=== PATIENT | female | born 1980 | race Caucasian/White ===

== ENCOUNTER → 2016-05-12 | Outpatient (CLI) | payer BC | END | disposition home or self-care (01) | LOC: C.LABSPEC 11:35 | PROVIDERS: ATTEND Physician Assistant | DX: N89.8 Other specified noninflammatory disorders of vagina (principal) ==

== ENCOUNTER → 2016-06-09 | Outpatient (CLI) | payer BC | END | disposition home or self-care (01) | LOC: C.PAPS 14:15 | PROVIDERS: ATTEND Physician Assistant | DX: Z01.419 Encounter for gynecological examination (general) (routine) without abnormal findings (principal) ==

== ENCOUNTER → 2016-11-27 | Outpatient (CLI) | payer BC ==
--- NOTE | 2016-11-27 09:20 | DIAGNOSTIC IMAGING REPORT ---
R HAND MIN 3 VIEWS ROUTINE CLINICAL HISTORY: Right hand pain status post trauma COMPARISON: None. DISCUSSION: No fractures or dislocations are visualized. IMPRESSION: No fractures identified. Electronically signed by: Florin Webster M.D. 11/27/2016 9:19 AM Dictated Date/Time: 11/27/2016 9:18 AM
== END | disposition home or self-care (01) ==
LOC: C.RAD1850 09:05
PROVIDERS: ATTEND Family Medicine
DX: S69.91XA Unspecified injury of right wrist, hand and finger(s), initial encounter (principal); X58.XXXA Exposure to other specified factors, initial encounter

== ENCOUNTER 2017-05-06 22:08 | Emergency (ER) | payer BC, OTHER ==
[~2017-05-06] VITALS: Ht 175.3 cm; Wt 82.3 kg
[2017-05-06 22:10] VITALS: TEMP 36.8; Ht 175.3 cm; Wt 82.3 kg
[2017-05-06] MEDS ORDERED: HYDROmorphone INJ 1 MG/ML SYR ONE ×2 (22:13→22:32)
[2017-05-06] MEDS ORDERED: ONDANSETRON INJ 2 MG/ML 2 ML VIAL ONE (22:15)
[2017-05-06] MEDS ORDERED: HYDROmorphone INJ 2 MG/ML SYR/VIAL IV STA (22:17)
[2017-05-06] MEDS ORDERED: ONDANSETRON INJ 2 MG/ML 2 ML VIAL IV STA (22:17)
[2017-05-06] MEDS ORDERED: HYDROmorphone INJ 1 MG/ML SYR IV STA (22:39)
--- NOTE | 2017-05-06 22:53 | DIAGNOSTIC IMAGING REPORT ---
R KNEE 3 VIEWS HISTORY: 37 years-old Female post reduction, patella status post reduction of dislocated patella COMPARISON: None available TECHNIQUE: 3 views of the right knee FINDINGS: Vertically oriented linear lucency overlying the fibular head is thought to be secondary to overlying soft tissue. 6 mm bone fragment with corticated margins is noted adjacent to the medial patellar facet. There is mild to moderate soft tissue swelling about the knee, greatest medially. Moderate sized joint effusion. No definite acute fracture or dislocation. IMPRESSION: 1. No acute fracture or dislocation identified. 2. 6 mm corticated bone fragment adjacent to the medial patellar facet suggests remote fracture fragment. 3. Medial soft tissue swelling with moderate joint effusion. The above report was generated using voice recognition software. It may contain grammatical, syntax or spelling errors. Electronically signed by: Clark Alejandra M.D. 05/06/2017 10:52 PM Dictated Date/Time: 05/06/2017 10:49 PM
[2017-05-06 23:29] VITALS: BP 112/65; PULSE 71; O2SAT 97
--- NOTE | 2017-05-07 05:03 | EMERGENCY ROOM VISIT NOTE ---
History First contact with patient: 22:17 Chief Complaint: KNEEPAIN Stated Complaint: R KNEE PAIN History of Present Illness The patient is a 37 year old female who presents to the Emergency Room with complaints of severe right knee pain who thinks she dislocated her patella wall skating tonight. Patient was turning and felt a pop and then fell the ground. Patient has been unable to bear weight. Pain currently 10 out of 10. Movement makes it worse nothing makes it better. No prior fracture to this leg. She is dislocated this patella before. Patient denies hip pain, ankle pain, torre pain , numbness, tingling. No other injuries per patient. Review of Systems An 10 system review of systems was completed with positives and pertinent negatives listed in the HPI. Past Medical/Surgical History Knee problems Social History Smoking Status: Never Smoker Alcohol Use: occasionally Drug Use: none Marital Status: Housing Status: lives with family Occupation Status: employed Physical Exam Vital Signs Date Time Temp Pulse Resp B/P (MAP) Pulse Ox O2 Delivery O2 Flow Rate FiO2 05/06/17 23:29 69 16 112/65 96 05/06/17 23:29 71 18 112/65 97 Room Air 05/06/17 22:10 36.8 83 20 115/70 100 Room Air Physical Exam VITALS: Vitals are noted on the nurse's note and reviewed by myself. Vital signs stable. GENERAL: Pleasant female who appears in pain, in no acute distress, nondiaphoretic, well-developed well-nourished. SKIN: Capillary reflex less than 2 seconds. HEENT: Normocephalic. PERRLA. EOMI. Nares patent. Mucous membranes moist. Neck is supple without nuchal rigidity. HEART: Regular rate and rhythm without murmurs gallops or rubs. LUNGS: Clear to auscultation bilaterally without wheezes, rales or rhonchi. No retractions or accessory muscle use. MUSCULOSKELETAL: No gross musculoskeletal defects. No pedal edema. No calf tenderness. The right knee is swollen. There is an obvious patellar dislocation laterally. The patient is tender diffusely. The patella subluxate. NEURO: Patient was alert and oriented to person place and time. Normal sensation to light and sharp touch. No focal neurological deficits. Medical Decision & Procedures Medications Administered Medications (Trade) Dose Ordered Sig/Ken Route Start Time Stop Time Status Last Admin Dose Admin Hydromorphone HCl (Dilaudid Inj) 1 mg STK-MED ONCE .ROUTE 05/06/17 22:13 05/06/17 22:14 DC 05/06/17 22:21 1 MG Ondansetron HCl (Zofran Inj) 4 mg STK-MED ONCE .ROUTE 05/06/17 22:15 05/06/17 22:16 DC 05/06/17 22:20 4 MG Hydromorphone HCl (Dilaudid Inj) 1 mg NOW STAT IV 05/06/17 22:39 05/06/17 22:40 DC 05/06/17 22:30 1 MG Procedure Right patella dislocation Reduction Indication: Patella dislocation Verbal consent obtained. Risks and benefits were explained with the usual customary discussion. A time out was taken. Neurovascular examination before the procedure revealed intact. The right knee patella dislocation was reduced by placing the patient supine and applying gentle downward inline traction on the leg with gentle midline pressure on the patella and manipulation was applied. This resulted in an easy reduction without complication. Neurovascular examination after the procedure revealed intact. The patient had significant pain relief and tolerated the procedure well. ED Course Prior records reviewed and summarized above. Triage Nursing notes reviewed. Additional history obtained from the family. The patient's history was concerning for swelling and pain in the leg. Differential diagnosis: Etiologies such as dislocation, sprain, strain, fracture, musculoskeletal, joint effusion, trauma, as well as others were entertained.. Physical examination: The physical examination revealed no signs of infection. Neurovascularly intact. ER treatment provided: Dilaudid, Zofran, crutches, knee immobilizer On reassessment the patient felt better. Diagnostics interpreted by me: Imaging studies: Knee x-ray shows proper realignment of the patella per my interpretation This appears to be consistent with patella dislocation that was reduced by myself. Patient was placed in a knee immobilizer and neurovascular status was rechecked after placement is intact. She is instructed in these crutches. She was advised to wear this when up and about and to follow-up with orthopedics in a few days or here in the ER sooner for severe pain, numbness, tingling, worsening signs or symptoms or as needed. By the evaluation outlined above emergent etiologies such as DVT, septic joint, infection, as well as others were deemed relatively unlikely. The pt informed about the findings as listed above. All questions were answered and pleased with the treatment. Return instructions were outlined and the patient was discharged in stable condition. Case reviewed with my attending Referral: The patient was referred to orthopedic for follow-up in 2 to 3 days for a recheck of the current condition. The chart was completed utilizing [employer] Speech voice recognition software. Grammatical errors, random word insertions, pronoun errors, and incomplete sentences are an occassional consequence of this system due to software limitations, ambient noise, and hardware issues. Any formal questions or concerns about the content, text, or information contained within the body of this dictation should be directly addressed to the physician grants and contracts assistant for clarification. Medical Decision As above Medication Reconcilliation Current Medication List: was personally reviewed by me Blood Pressure Screening Patient's blood pressure: Normal blood pressure Impression Primary Impression: Closed patellar dislocation Departure Information Dispostion Home / Self-Care Condition GOOD Referrals Isreal Hector D.O. 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 You were given medications in the ER that can affect your ability to safely function or operate a vehicle. Ibuprofen(Motrin, Advil) may be used for fever or pain. Use 600mg every six hours as needed. Take with food. Avoid using more than 2400mg in a 24 hour period. Do not use 2400mg per day for more than three consecutive days without physician direction. Prolonged inappropriate use can lead to stomach upset or ulcers. This medication can be taken if you need to drive, work, or perform activities which may be dangerous when taking narcotic pain medication. (AND/OR) Acetaminophen(Tylenol) may be used for fever or pain. Use 1000mg every six hours as needed. Avoid using more than 3000mg in a 24 hour period. This medication can be taken if you need to drive, work, or perform activities which may be dangerous when taking narcotic pain medication. Ice compresses for 20 minutes at a time four times daily for 2-3 days. Use the crutches as instructed. Rest and elevate your injury. Wear knee immobilizer when up and about. Do not have it so tight that you cannot feel your foot. Continue current medications. Return to the ER immediately for any numbness, tingling, severe pain, extreme swelling in the extremity or as needed. Call Orthopedics tomorrow to arrange follow up for your injury. Work Instructions Return To Work: 2 days Problem Qualifiers Primary Impression: Closed patellar dislocation Encounter type: initial encounter Laterality: right Qualified Codes: S83.004A - Unspecified dislocation of right patella, initial encounter
== END 2017-05-06 23:31 | disposition home or self-care (01) ==
LOC: EDBD 22:08 → C.EDA 22:10
DX: S83.004A Unspecified dislocation of right patella, initial encounter (principal); X50.9XXA Other and unspecified overexertion or strenuous movements or postures, initial encounter

== ENCOUNTER → 2017-09-22 | Outpatient (CLI) | payer OTHER | LOC: C.LAB1850 07:45 | PROVIDERS: ATTEND Obstetrics & Gynecology | DX: N97.9 Female infertility, unspecified (principal) ==

== ENCOUNTER 2021-03-05 23:38 | Inpatient (IN) ==
[2021-03-06] MEDS ORDERED: OXYTOCIN 30 UNITS/500 ML BAG IV PRN ×2 (00:01→18:33)
[2021-03-06] MEDS ORDERED: miSOPROStoL 50 MCG TAB PO ONE ×3 (00:01→07:24)
[2021-03-06 00:24] LABS: Hematocrit (blood only) 32.9 % (37-47); Hemoglobin 10.1 g/dL (12.0-16.0); Mean Corpuscular Hemoglobin 25.2 pg (25-34); Mean Corpuscular Hgb Conc 30.7 g/dL (32-36); Mean Platelet Volume 10.1 fL (7.4-10.4); Nucleated RBC # (auto) 0.03 K/uL (0-0); Nucleated RBC % (auto) 0.3 %; Platelet Count 225 K/uL (130-400); RDW Coefficient of Variation 15.1 % (11.5-14.5); RDW Standard Deviation 45.6 fL (36.4-46.3); Red Blood Count 4.01 M/uL (4.2-5.4); White Blood Count 8.87 K/uL (4.8-10.8)
--- NOTE | 2021-03-06 01:28 | History & Physical Report ---
Date of Service March 06, 2021 Assessment & Plan (1) 40 weeks gestation of : (2) Elderly primigravida: (3) PROM (premature rupture of membranes): Plan: admit, cx not particularly favorable, but carlos too frequently for cytotec. Patient desires minimal intervention if possible, so will allow expectant management. reevaluate at 4 am--6 hours from rupture. fetus category one. History of Present Illness Chief Complaint: rom Primary Care Provider: Clint Wang MD Patient is a 41yowf with iup at 40 1/7 weeks. Patient notes was talking with her , laughed and felt a gush about 10pm. Notes it was pink tinged. Had a few more small gushes since then. Notes some cramping. no vb. + fm. and Delivery Plans AMA>40@del *Anatomy Scan @ 20wks * Echo 22-24wks-- WNL *Growth scan @32wks--90% akh repeat growth at 36wks - 78% *Weekly NST's @36 wks *Twice weekly NST @38wks *Weekly SHEILA's @ 38 wks. *Deliver by 41 wksIOL 03/11/21 covid vaccine and booster done, [employer]In Social Has had flu vaccine. OB Labs: Blood Type O Positive 08/09/20 Antibody Screen NEGATIVE 08/09/20 Hemoglobin 10.9 g/dL (12.0-16.0) L 12/13/20 Hematocrit 33.5 % (37-47) L 12/13/20 Mean Corpuscular Volume 87.8 fL (80-100) 08/09/20 Platelet Count 295 K/uL (130-400) 08/09/20 Rubella IgG Antibody Immune (Immune) 08/09/20 Rapid Plasma Reagin Nonreactive (Nonreactive) 08/09/20 Hepatitis B Surface Antigen Neg (Neg) 08/09/20 HIV (1&2) Ab and P24 Ag, 4th Gener Neg (Neg) 08/09/20 Glucose 1 Hour 50 gm Load 154 mg/dl (70-130) H 12/13/20 Maternal Serum Alpha Fetoprotein 41.2 ng/mL 09/20/20 OB Optional Labs: Chlamydia trachomatis RNA NOT DETECTED (NOT DETECTED) 08/09/20 Neisseria gonorrhoeae RNA NOT DETECTED (NOT DETECTED) 08/09/20 Thyroid Stimulating Hormone (TSH) 1.440 uIu/ml (0.300-4.500) 01/24/19 Alpha Fetoprotein Triple Screen SEE NOTE 09/20/20 Labs Reviewed: low risk panorama--akh afp neg--akh gbs neg Allergies Allergy/AdvReac Type Severity Reaction Status Date / Time Latex, Natural Rubber Allergy Rash Verified 03/06/21 00:28 clindamycin AdvReac Rash Verified 03/06/21 00:28 Echinacea AdvReac Anaphylaxis Verified 03/06/21 00:28 theophylline AdvReac Vomiting Verified 03/06/21 00:28 Home Medications Medication Instructions Recorded Confirmed Type albuterol sulfate 90 mcg/actuation 1 puffs INH Q6H PRN 01/29/19 03/06/21 History aerosol inhaler (ProAir HFA) multivitamin (Multiple Vitamins) 1 tab PO DAILY 01/29/19 03/06/21 History sertraline [Zoloft] 200 mg PO DAILY 01/29/19 03/06/21 History Patient History Medical History Female infertility History of chicken pox History of ovarian cyst Surgical History S/P tooth extraction Family History Father Kidney stones Type B viral hepatitis Mother Type B viral hepatitis Family/Other Tuberculosis maternal great grandmother Grandmother (Maternal) Lung cancer Grandmother (Paternal) Diabetes Denies family history of Ovarian cancer Prostate cancer Breast cancer Colorectal cancer Social History Smoking Status: Never smoker Second Hand Exposure: No; Do You Dip or Chew Tobacco: No; Hx Alcohol Use: No Hx Substance Use: No Preferred Language: [place] Communication Ability: Effective Cereal Chemist Required: No Beliefs That Will Affect Care: None marital status: marital status details: Harvey Mackenzie (40) [phone] Current Living Situation: Spouse Current Living Situation Comment: lives with spouse, 2 step children, dogs current occupational status: employed 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 Other Information That Helps Us Care for You: No Feels Safe at Home: Yes Safety Concerns: Feels Safe At This Time Assistive Devices: Glasses Assistive Devices Comment: Pt wears glasses 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
--- NOTE | 2021-03-06 03:20 | Labor Progress Brief Note ---
Date of Service March 06, 2021 Subjective noting some cramping Assessment & Plan (1) PROM (premature rupture of membranes): Plan: what contractions she was having seem to have spaced. think she would benefit from cytotec for cervical ripening at this time. prom x 5 hrs. fetus category one. 50mcg po and reevaluate in 4 hours. she is agreeable. Physical Exam Physical Exam: cx--deferred toco--occasional efm--130s with mod variability, accels to 170s, no decels Results & Data ([facility]) Vital Signs (Past 12 Hours) Vital Signs Temp Pulse Resp BP 03/06/21 02:00 37.0 C 03/06/21 00:10 36.9 C 69 18 138/68 03/05/21 23:48 69 138/68 Coding Level of Care Code None Diagnoses PROM (premature rupture of membranes) O42.90
--- NOTE | 2021-03-06 07:26 | Labor Progress Brief Note ---
Date of Service March 06, 2021 Subjective Notes got really crampy after the cytotec but notes improved and got some rest. Assessment & Plan (1) PROM (premature rupture of membranes): Plan: cx still very unfavorable. toco allows another cytotec. prom x 9 hours. I think further cervical ripening will benefit patient. no fever or s/s of infection. Admission and Anticipated Discharge Date Admission Date: March 06, 2021 Physical Exam Physical Exam: cx--1+/50/-2/firm, more reachable toco--q5min efm--120s wtih mod variability, accels to 150s, no decels Results & Data ([facility]) Vital Signs (Past 12 Hours) Vital Signs Temp Pulse Resp BP 03/06/21 07:01 36.9 C 60 20 119/66 03/06/21 06:00 36.9 C 03/06/21 04:00 36.8 C 73 16 103/54 L 03/06/21 02:00 37.0 C 03/06/21 00:10 36.9 C 69 18 138/68 03/05/21 23:48 69 138/68 Coding Level of Care Code None Diagnoses PROM (premature rupture of membranes) O42.90
[2021-03-06] MEDS ORDERED: miSOPROStoL 25 MCG TAB SL STA (12:43)
--- NOTE | 2021-03-06 12:48 | Labor Progress Brief Note ---
Date of Service March 06, 2021 Subjective Patient has been ambulating. Feeling some increase in ctx. FHT Cat1 [place] occasional SVE 2-3/50/-2 Will plan for another dose of cytotec, will give sublingual. We reviewed her plan. Patient agreeable with plan. Assessment & Plan Admission and Anticipated Discharge Date Admission Date: March 06, 2021 Results & Data ([facility]) Vital Signs (Past 12 Hours) Vital Signs Temp Pulse Resp BP 03/06/21 09:01 36.7 C 03/06/21 07:01 36.9 C 60 20 119/66 03/06/21 06:00 36.9 C 03/06/21 04:00 36.8 C 73 16 103/54 L 03/06/21 02:00 37.0 C Coding Level of Care Code None
[2021-03-06] MEDS: LACTATED RINGER'S 1,000 ML IV PRN (17:55)
--- NOTE | 2021-03-06 18:06 | Labor Progress Brief Note ---
Date of Service March 06, 2021 Subjective Doing well. SVE /80/-1 bulging fore-bag, AROM for clear fluid. Will plan to start pitocin. T Cat 1 [place] Q 5 Assessment & Plan Admission and Anticipated Discharge Date Admission Date: March 06, 2021 Results & Data ([facility]) Vital Signs (Past 12 Hours) Vital Signs Temp Pulse Resp BP 03/06/21 17:19 36.9 C 03/06/21 15:41 58 L 121/70 03/06/21 14:25 36.8 C 03/06/21 11:50 36.9 C 03/06/21 09:01 36.7 C 03/06/21 07:01 36.9 C 60 20 119/66 Coding Level of Care Code None
--- NOTE | 2021-03-07 01:19 | Labor Progress Brief Note ---
Date of Service March 07, 2021 Subjective Patient does not desire pain control at this time. FHT Cat 1 [employer] rare SVE same as last check per RN. L&D unit was unable to begin pitocin due to staffing levels. At this point, we are able to begin pitocin safely. Discussed with patient and she is agreeable. Assessment & Plan Admission and Anticipated Discharge Date Admission Date: March 06, 2021 Results & Data ([facility]) Vital Signs (Past 12 Hours) Vital Signs Temp Pulse Resp BP 03/07/21 00:58 60 126/67 03/07/21 00:47 72 121/69 03/06/21 23:19 36.9 C 62 124/65 03/06/21 20:04 63 125/58 L 03/06/21 20:00 36.7 C 18 03/06/21 18:59 37.0 C 03/06/21 17:19 36.9 C 03/06/21 15:41 58 L 121/70 03/06/21 14:25 36.8 C Coding Level of Care Code None
[2021-03-07] MEDS: LACTATED RINGER'S 1,000 ML IV PRN ×3 (01:32→10:37)
[2021-03-07] MEDS ORDERED: ePHEDrine sulfate 50 MG/ML AMP ONE (03:03)
[2021-03-07] MEDS ORDERED: fentaNYL 2MCG/ML ROPIVACAINE 1.25MG/ML 100 ML BAG EPI ONE (03:03)
[2021-03-07] MEDS ORDERED: fentaNYL citrate 100 MCG/2 ML VIAL ONE ×2 (03:03→08:55)
[2021-03-07] MEDS ORDERED: SODIUM CHLORIDE 0.9% INJ 10 ML VIAL ONE (03:03)
[2021-03-07] MEDS ORDERED: BUPIVACAINE 0.25% 30 ML VIAL ONE ×2 (03:03→08:55)
--- NOTE | 2021-03-07 03:28 | Anesthesiology Consultation ---
Date of Service March 07, 2021 Assessment & Plan (1) Encounter for pre-operative examination: Chart Review Chart Review: Patient NOT seen in Pre Admission Testing and Acceptable Risk for Labor Epidural Consults Requested none History Height/Weight Height: 5 ft 9 in Weight: 90.904 kg Allergies Allergy/AdvReac Type Severity Reaction Status Date / Time Latex, Natural Rubber Allergy Rash Verified 03/06/21 00:28 clindamycin AdvReac Rash Verified 03/06/21 00:28 Echinacea AdvReac Anaphylaxis Verified 03/06/21 00:28 theophylline AdvReac Vomiting Verified 03/06/21 00:28 Medications Home Medications Medication Instructions Recorded Confirmed Last Taken albuterol sulfate 90 mcg/actuation 1 puffs INH Q6H PRN 01/29/19 03/06/21 Unknown aerosol inhaler (ProAir HFA) multivitamin (Multiple Vitamins) 1 tab PO DAILY 01/29/19 03/06/21 03/05/21 08:00 sertraline 100 mg tablet (Zoloft) 200 mg PO DAILY 03/06/21 03/06/21 03/05/21 08:00 Active Medications Generic Name Dose Route Start Last Admin Trade Name Freq PRN Reason Stop Dose Admin Lactated Ringer's 1,000 mls @ 125 mls/hr 03/06/21 00:01 03/07/21 03:02 Lr IV 03/08/21 00:00 999 mls/hr .Q8H PRN Infusion L&D Protocol Protocol Oxytocin 30 units in 500 mls @ 5 mls/hr 03/06/21 18:33 03/07/21 03:02 Pitocin IV 03/08/21 18:32 0.3 units/hr .Q24H PRN 5 mls/hr Labor Induction/Augmentation Titration Protocol 0.3 UNITS/HR Past Medical History Medical History Female infertility History of chicken pox History of ovarian cyst Past Family History Family History Father Kidney stones Type B viral hepatitis Mother Type B viral hepatitis Family/Other Tuberculosis maternal great grandmother Grandmother (Maternal) Lung cancer Grandmother (Paternal) Diabetes Denies family history of Ovarian cancer Prostate cancer Breast cancer Colorectal cancer Past Surgical History Surgical History S/P tooth extraction Social History Smoking Status: Never smoker Do You Dip or Chew Tobacco: No Hx Alcohol Use: No Hx Substance Use: No substance use type: does not use Physical Exam Vital Signs Last Vital Signs Temp 36.9 C 03/07/21 00:58 Pulse 68 03/07/21 02:58 Resp 18 03/07/21 00:58 BP 124/66 03/07/21 02:58 Testing Laboratory Results 03/06/21 00:14
[2021-03-07] MEDS ORDERED: ePHEDrine sulfate 50 MG/ML AMP IV PRN (04:12)
[2021-03-07] MEDS ORDERED: NALOXONE HCL 0.4 MG/1 ML VIAL/CARP IV PRN (04:12)
[2021-03-07] MEDS ORDERED: NALBUPHINE HCL INJ 10 MG/ML AMP IV PRN (04:12)
[2021-03-07] MEDS ORDERED: diphenhydrAMINE 50 MG/ML VIAL IV PRN (04:12)
[2021-03-07] MEDS ORDERED: NALOXONE HCL 1 MG in SODIUM CHLORIDE 0.9% 1000ML 1,000 ML IV PRN (04:12)
[2021-03-07] MEDS ORDERED: ONDANSETRON INJ 2 MG/ML 2 ML VIAL IV PRN (04:12)
[2021-03-07] MEDS ORDERED: fentaNYL 2MCG/ML ROPIVACAINE 1.25MG/ML 100 ML BAG EPI PRN (04:12)
--- NOTE | 2021-03-07 07:38 | Labor Progress Brief Note ---
Date of Service March 07, 2021 Subjective Comfortable with epidural. FHT Cat 1 [place] Q 2 SVE 9/100/0 Continue labor, anticipate . Assessment & Plan Admission and Anticipated Discharge Date Admission Date: March 06, 2021 Results & Data ([facility]) Vital Signs (Past 12 Hours) Vital Signs Temp Pulse Resp BP Pulse Ox 03/07/21 07:33 77 100 03/07/21 07:31 78 134/63 03/07/21 07:28 77 99 03/07/21 07:23 81 100 03/07/21 07:18 88 99 03/07/21 07:15 86 130/61 03/07/21 07:13 85 100 03/07/21 07:08 92 H 99 03/07/21 07:03 117 H 98 03/07/21 07:00 37.2 C 93 H 20 133/77 03/07/21 06:58 93 H 99 03/07/21 06:56 88 94 03/07/21 06:53 71 98 03/07/21 06:48 71 98 03/07/21 06:45 69 124/66 03/07/21 06:43 67 98 03/07/21 06:38 63 97 03/07/21 06:33 66 98 03/07/21 06:30 66 20 133/68 03/07/21 06:28 66 97 03/07/21 06:23 71 99 03/07/21 06:18 77 99 03/07/21 06:15 81 135/96 92 03/07/21 06:13 76 97 03/07/21 06:08 68 98 03/07/21 06:03 68 98 03/07/21 06:01 67 128/69 03/07/21 05:58 66 97 03/07/21 05:53 65 98 03/07/21 05:48 66 96 03/07/21 05:45 68 109/63 03/07/21 05:43 71 97 03/07/21 05:38 69 96 03/07/21 05:33 62 98 03/07/21 05:30 36.9 C 66 20 124/70 03/07/21 05:28 84 96 03/07/21 05:23 67 96 03/07/21 05:18 70 97 03/07/21 05:15 65 118/66 03/07/21 05:13 68 97 03/07/21 05:10 74 92 03/07/21 05:08 63 94 03/07/21 05:03 63 94 03/07/21 05:00 62 115/55 L 03/07/21 04:58 65 94 03/07/21 04:53 62 96 03/07/21 04:48 62 97 03/07/21 04:43 62 97 03/07/21 04:41 60 118/58 L 03/07/21 04:38 61 97 03/07/21 04:35 60 124/65 03/07/21 04:33 60 97 03/07/21 04:30 60 126/58 L 03/07/21 04:28 60 98 03/07/21 04:25 70 124/55 L 03/07/21 04:23 70 99 03/07/21 04:20 65 128/59 L 03/07/21 04:18 75 127/62 97 03/07/21 04:16 63 113/58 L 03/07/21 04:14 67 120/59 L 03/07/21 04:13 64 99 03/07/21 04:12 69 126/68 03/07/21 04:10 78 124/59 L 03/07/21 04:08 75 123/63 99 03/07/21 04:06 76 126/61 03/07/21 04:04 73 130/66 03/07/21 04:03 80 99 03/07/21 04:02 73 130/68 03/07/21 04:00 82 129/68 03/07/21 03:58 74 131/72 99 03/07/21 03:56 88 133/72 03/07/21 03:54 73 127/72 03/07/21 03:53 78 100 03/07/21 03:48 81 100 03/07/21 03:43 76 100 03/07/21 03:38 78 100 03/07/21 03:33 81 100 03/07/21 03:00 36.5 C 20 03/07/21 02:58 68 124/66 03/07/21 01:56 66 129/75 03/07/21 00:58 36.9 C 60 18 126/67 03/07/21 00:47 72 121/69 03/06/21 23:19 36.9 C 62 124/65 03/06/21 20:04 63 125/58 L 03/06/21 20:00 36.7 C 18 Coding Level of Care Code None
[2021-03-07] MEDS ORDERED: ACETAMINOPHEN 500 MG TAB ONE (08:18)
[2021-03-07] MEDS ORDERED: ACETAMINOPHEN 500 MG TAB PO PRN (08:29)
[2021-03-07] MEDS ORDERED: MINERAL OIL 30 ML UDC ONE (15:06)
[2021-03-07] MEDS ORDERED: LIDOCAINE 1% LOCAL 20 ML VIAL ONE (15:53)
--- NOTE | 2021-03-07 16:29 | Delivery Summary ---
Vaginal Delivery Summary Date of Service March 07, 2021 Vaginal Delivery Summary and 3rd Degree LAC (partial 3rd) Patient is a 41-year-old G1, P0 white female who presented with spontaneous rupture membranes and an unfavorable cervix. She received several doses p.o. Cytotec. Pitocin augmentation was begun after an adequate contraction pattern had been established. She received effective epidural analgesia and progressed to complete dilation. She pushed effectively over intact perineum for delivery of a viable female in the occiput anterior presentation. The rest of the infant delivered easily and was placed on the mother's abdomen for further attention and drying. After 1 minute the cord was clamped and cut. The placenta was then expressed intact with a three-vessel cord. Partial third- degree perineal laceration was repaired with 2-0 chromic and 3-0 chromic in the usual fashion. Estimated blood loss was 300 cc. bleeding was controlled with dilute Pitocin and fundal massage. Mother and were doing well after delivery. [facility] [place] Delivery Charge Delivery Type Details: and 3rd Degree LAC (partial 3rd)
[2021-03-07] MEDS ORDERED: SUPERCREAM 0.870% 15 GM JAR EXT PRN (16:35)
[2021-03-07] MEDS ORDERED: HYDROCORTISONE ACETATE 25 MG SUPP PR PRN (16:35)
[2021-03-07] MEDS ORDERED: oxyCODONE/ACETAMINOPHEN 5mg/325mg TAB PO PRN (16:35)
[2021-03-07] MEDS ORDERED: DIPHTHERIA/TETANUS/PERTUSSIS 0.5 ML SYR/VIAL IM ONE (16:35)
[2021-03-07] MEDS ORDERED: bisacodyL 10 MG SUPP PR PRN (16:35)
[2021-03-07] MEDS ORDERED: OXYTOCIN 30 UNITS/500 ML BAG IV PRN (16:35)
[2021-03-07] MEDS ORDERED: ACETAMINOPHEN 325 MG TAB PO PRN (16:35)
[2021-03-07] MEDS ORDERED: BENZOCAINE 20% AER SPR 82.5 GM CAN EXT PRN (16:35)
[2021-03-07] MEDS: IBUPROFEN 600 MG TAB PO PRN ×2 (17:42→21:05)
--- NOTE | 2021-03-07 18:42 | Anesthesia Procedure Note ---
Date of Service March 07, 2021 Anesthesia Post Epidural Note Vital Signs Vital Signs: Temp Pulse Resp BP Pulse Ox 36.5 C 77 20 114/57 L 98 03/07/21 13:35 03/07/21 18:12 03/07/21 12:30 03/07/21 18:12 03/07/21 15:34 Pain Intensity Bilateral Abdomen: Pain Intensity: 4 Notes Mental Status: alert / awake / arousable and participated in evaluation Patient Amnestic to Procedure: Yes Nausea / Vomiting: adequately controlled Pain: adequately controlled Airway Patency, RR, SpO2: stable & adequate BP & HR: stable & adequate Hydration State: stable & adequate Anesthetic Complications: no major complications apparent and Pt Satisfied with anesthetic care
[2021-03-07] MEDS: DOCUSATE SODIUM 100 MG CAP PO SCH (21:05)
[2021-03-08] MEDS: IBUPROFEN 600 MG TAB PO PRN ×4 (01:37→20:44)
--- NOTE | 2021-03-08 06:10 | Obstetrical Progress Note ---
Date of Service <Toni Pleitez DO - Last Filed: 03/08/21 08:03> March 08, 2021 Assessment & Plan <Toni Pleitez DO - Last Filed: 03/08/21 08:03> (1) Encounter for care and examination after delivery: 41 yo post day 1 from vaginal delivery, doing well. -Continue routine post care. -vital signs reviewed and WNL. (Tmax 37.9) -Blood type O+, GBS negative, Rubella Immune -Encourage ambulation, monitor and control pain with Motrin, tylenol PRN, resume regular diet, monitor lochia. -encourage breast feeding. Breast pump prescription sent to pharmacy. -hemoglobin 7.8. <Tequila Coe MD, FACOG - Last Filed: 03/08/21 10:01> (1) Encounter for care and examination after delivery: Subjective <Toni Pleitez DO - Last Filed: 03/08/21 08:03> Ambulation: ambulating normally Voiding: no voiding problems Passing Gas:: Yes Diet Tolerance:: regular diet Lochia:: Small Feeding Type:: breast feeding Current Pain Level(1-10): 0 Review of Systems Denies fever, chills, sweats Denies shortness of breath, difficulty breathing, chest pain, palpitations, chest pressure. Denies breast pain. Denies dysuria. Denies headache or changes in vision Physical Exam <Toni Pleitez DO - Last Filed: 03/08/21 08:03> General: Alert, oriented. No acute distress. Cardiac: Regular rate and rhythm, no murmurs/rubs/gallops. Respiratory: Clear to auscultation bilaterally a/p, no wheezes/rales/rhonchi. No increased work of breathing. Symmetrical chest rise. No respiratory distress. Abdomen: Soft, nontender, nondistended. Bowel sounds present. Uterus: Uterine fundus firm, palpable 2 cm below umbilicus. Lower Extremities: No lower extremity edema or swelling. No deep calf pain. Panda's negative bilaterally Results & Data ([facility]) <Toni Pleitez DO - Last Filed: 03/08/21 08:03> Vital Signs (Past 12 Hours) Vital Signs Temp Pulse Pulse Resp BP BP Pulse Ox 03/08/21 04:10 36.5 C 64 16 99/62 L 95 03/07/21 23:50 36.5 C 65 17 109/64 95 03/07/21 20:00 36.5 C 81 16 114/69 95 03/07/21 18:12 77 114/57 L <Tequila Coe MD, FACOG - Last Filed: 03/08/21 10:01> Co-Signing Physician Notes Resident Physician Supervision Note: I was present with Dr. Pleitez during the history and exam. I discussed the case with the resident and agree with the findings and plan as documented in the note. Any exceptions or clarifications are listed here: [None] Documented By: Tequila Coe MD, FACOG Resident Activity Tracking <Toni Pleitez DO - Last Filed: 03/08/21 08:03> Resident Involvement: Resident Care Provided Care Provided: OB Delivery
[2021-03-08 07:11] LABS: Hematocrit (blood only) 25.5 % (37-47); Hemoglobin 7.8 g/dL (12.0-16.0); Mean Corpuscular Hemoglobin 25.1 pg (25-34); Mean Corpuscular Hgb Conc 30.6 g/dL (32-36); Mean Platelet Volume 10.6 fL (7.4-10.4); Platelet Count 185 K/uL (130-400); RDW Coefficient of Variation 15.4 % (11.5-14.5); RDW Standard Deviation 45.7 fL (36.4-46.3); Red Blood Count 3.11 M/uL (4.2-5.4); White Blood Count 21.76 K/uL (4.8-10.8)
[2021-03-08] MEDS: PRENATAL VITAMIN 1 TAB PO SCH (07:56)
[2021-03-08] MEDS: DOCUSATE SODIUM 100 MG CAP PO SCH ×2 (07:56→20:43)
[2021-03-08] MEDS: SERTRALINE HCL 100 MG TABLET PO SCH (08:49)
[2021-03-08] MEDS ORDERED: FERROUS SULFATE 325 MG TAB PO ONE ×2 (10:28→14:11)
[2021-03-08] MEDS ORDERED: bisacodyL 5 MG TABEC PO SCH (20:00)
[2021-03-08 21:14] VITALS: O2SAT 97
[2021-03-09] MEDS: IBUPROFEN 600 MG TAB PO PRN ×2 (04:35→07:33)
--- NOTE | 2021-03-09 06:09 | Obstetrical Progress Note ---
Date of Service <Toni Pleitez DO - Last Filed: 03/09/21 07:26> March 09, 2021 Assessment & Plan <Toni Pleitez DO - Last Filed: 03/09/21 07:26> (1) Encounter for care and examination after delivery: 41 yo post day 2 from vaginal delivery, doing well. -Continue routine post care. -vital signs reviewed and WNL. (Tmax 37.9) -Blood type O+, GBS negative, Rubella Immune -Encourage ambulation, monitor and control pain with Motrin, tylenol PRN, resume regular diet, monitor lochia. -encourage breast feeding. Breast pump prescription sent to pharmacy. -hemoglobin 7.8 yesterday. Ferrous sulfate prescription sent to pharmacy. -D/C today if cleared by peds. Patient to follow up with Dr. Sanchez in clinic in 6 weeks. <Caryl Condon MD, FACOG - Last Filed: 03/09/21 07:43> (1) Encounter for care and examination after delivery: Subjective <Toni Pleitez DO - Last Filed: 03/09/21 07:26> Ambulation: ambulating normally Voiding: no voiding problems Passing Gas:: Yes Diet Tolerance:: regular diet Lochia:: Small Feeding Type:: breast feeding Current Pain Level(1-10): 0 Review of Systems Denies fever, chills, sweats Denies shortness of breath, difficulty breathing, chest pain, palpitations, chest pressure. Denies breast pain. Denies dysuria. Denies headache or changes in vision Physical Exam <Toni Pleitez DO - Last Filed: 03/09/21 07:26> General: Alert, oriented. No acute distress. Cardiac: Regular rate and rhythm, no murmurs/rubs/gallops. Respiratory: Clear to auscultation bilaterally a/p, no wheezes/rales/rhonchi. No increased work of breathing. Symmetrical chest rise. No respiratory distress. Abdomen: Soft, nontender, nondistended. Bowel sounds present. Uterus: Uterine fundus firm, palpable 2 cm below umbilicus. Lower Extremities: No lower extremity edema or swelling. No deep calf pain. Panda's negative bilaterally Results & Data ([facility]) <Toni Pleitez DO - Last Filed: 03/09/21 07:26> Vital Signs (Past 12 Hours) Vital Signs Temp Pulse Resp BP Pulse Ox 03/08/21 23:27 36.8 C 56 L 18 113/71 97 <Caryl Condon MD, FACOG - Last Filed: 03/09/21 07:43> Co-Signing Physician Notes Resident Physician Supervision Note: I was present with [Name of resident] during the history and exam. I discussed the case with the resident and agree with the findings and plan as documented in the note. Any exceptions or clarifications are listed here: [None] Documented By: Caryl Condon MD, FACOG Resident Activity Tracking <Toni Pleitez DO - Last Filed: 03/09/21 07:26> Resident Involvement: Resident Care Provided Care Provided: OB Delivery
[2021-03-09 06:38] LABS: Hemoglobin 7.6 g/dL (12.0-16.0)
[2021-03-09] MEDS ORDERED: FERROUS SULFATE 325 MG TAB PO ONE (07:28)
[2021-03-09] MEDS: DOCUSATE SODIUM 100 MG CAP PO SCH (07:32)
[2021-03-09] MEDS: PRENATAL VITAMIN 1 TAB PO SCH (07:32)
[2021-03-09] MEDS: SERTRALINE HCL 100 MG TABLET PO SCH (07:33)
[2021-03-09 09:29] VITALS: BP 112/70; PULSE 58; TEMP 97.7
== END 2021-03-09 13:50 | disposition home or self-care (01) | DRG 768 ==
LOC: OPB 23:38 → 4S1 23:40 → 4S2 03-07 20:01
DX: Z3A.40 40 weeks gestation of pregnancy; O42.00 Premature rupture of membranes, onset of labor within 24 hours of rupture, unspecified weeks of gestation; Z37.0 Single live birth; Z88.1 Allergy status to other antibiotic agents; Z91.040 Latex allergy status; Z88.8 Allergy status to other drugs, medicaments and biological substances; O70.20 Third degree perineal laceration during delivery, unspecified

== ENCOUNTER 2021-03-15 17:25 | Observation (INO) ==
[2021-03-15] MEDS ORDERED: MAG SULFATE 4GM BOLUS FROM BAG IV ONE (18:04)
[2021-03-15] MEDS ORDERED: LABETALOL HCL IV 5 MG/ML 20ML IV STA (18:04)
[2021-03-15] MEDS ORDERED: hydrALAZINE HCL 20 MG/ML VIAL IV STA (18:18)
[2021-03-15 18:33] LABS: Hematocrit (blood only) 31.5 % (37-47); Hemoglobin 9.4 g/dL (12.0-16.0); Mean Corpuscular Hemoglobin 25.1 pg (25-34); Mean Platelet Volume 9.8 fL (7.4-10.4); Platelet Count 197 K/uL (130-400); RDW Coefficient of Variation 16.3 % (11.5-14.5); Red Blood Count 3.75 M/uL (4.2-5.4); White Blood Count 9.77 K/uL (4.8-10.8)
[2021-03-15 18:41] LABS: Mean Corpuscular Hgb Conc 29.8 g/dL (32-36)
[2021-03-15 18:52] LABS: ALC (manual) 1.71 K/uL (1.2-3.4); Basophils # (manual) 0.09 K/uL (0-0.2); Basophils % (manual) 0.9 %; Eosinophils # (manual) 0.25 K/uL (0-0.5); Eosinophils % (manual) 2.6 %; Lymphocytes # (manual) 1.71 K/uL (1.2-3.4); Lymphocytes % (manual) 17.5 %; Monocytes # (manual) 0.43 K/uL (0.11-0.59); Monocytes % (manual) 4.4 %; Myelocytes # (manual) 0.09 K/uL (0-0); Myelocytes % (manual) 0.9 %; Neutrophils % (manual) 73.7 %; Polychromasia 1+
[2021-03-15 18:53] LABS: INR 1.1 (0.9-1.1); Partial Thromboplastin Time 27.2 Seconds (21.0-31.0); Prothrombin Time 11.2 Seconds (9.0-12.0)
[2021-03-15] MEDS: MAGNESIUM SULFATE / WTR 40 GM/1,000 ML BAG IV SCH (18:56)
[2021-03-15 19:10] LABS: Alanine Aminotransferase 30 U/L (7-52); Albumin Globulin Ratio 1.3 (0.9-2); Albumin Level 3.2 gm/dl (3.4-5.0); Alkaline Phosphatase 137 U/L (34-104); Anion Gap 7 (3-11); Aspartate Aminotransferase 26 U/L (13-39); BUN Creatinine Ratio 22.2 (10-20); Bilirubin,Total 0.3 mg/dl (0.2-1.0); Blood Urea Nitrogen 16 mg/dl (6-23); Carbon Dioxide 24 mmol/L (21-32); Chloride 109 mmol/L (98-107); Est GFR (African American) 121.4 ml/min; Est GFR (Non-African American) 104.8 ml/min; Globulin 2.4 gm/dl (2.5-4.0); Glucose 77 mg/dl (70-99(Fasting)); Potassium 4.2 mmol/L (3.5-5.1); Sodium 140 mmol/L (136-145); Total Protein 5.6 gm/dl (6.0-8.3)
--- NOTE | 2021-03-15 19:10 | History & Physical Report ---
Date of Service March 15, 2021 Assessment & Plan (1) hypertension: Plan: Suspect this could be pp preeclampsia given her sx and her elevated bps. Still markedly high here on arrival and rec anti-hypertensive meds. At first ordered labetalol but pulse <60 and changed to hydralazine. Rec magnesium seizure prophylaxis and labs. Couple aware of plan of care and rationale. Needs to void regularly, and pt would like to try on bedpan but aware may need alexandre for this evaluation. Discussed sx on magnesium and renally excreted. Platelts back so far and normal but other labs pending. Discussed risks of worsening preclampsia/eclampsia if untreated and significance. Admission and Anticipated Discharge Date Admission Date: March 15, 2021 History of Present Illness Chief Complaint: headaches and elevated bp, 9d pp Primary Care Provider: Clint Wang MD 41yo now 9days who presented to office with above cc. Patient had PROM induction with on 03/07/20 at term. She was sent home on 03/09/20. Of note no hypertensive disorders of or immediate pp. Then on thursday at home saw some bright flashing lights, some swelling and called on thursday and was seen in office. She had used a home bp cuff on thursday and thought her bp was elevated. At that point BP normal and no other symptoms when seen in office and provider recommended recheck of bp on thursday in office. Presented for that visit today. Had on and off HAs "all day." She denies n/v/ruq pain. Has had some gum bleeding today as well. On evaluation in office bps elevated 160/94 and d/w office md and decided likely pp preeclampsi and brought to L&D as direct admission for observation. On arrival reports same sx. Has been nursing and that is going well. No requesting anything for juarez pain. Allergies Allergy/AdvReac Type Severity Reaction Status Date / Time Latex, Natural Rubber Allergy Rash Verified 03/15/21 16:00 clindamycin AdvReac Rash Verified 03/15/21 16:00 Echinacea AdvReac Anaphylaxis Verified 03/15/21 16:00 theophylline AdvReac Vomiting Verified 03/15/21 16:00 Home Medications Medication Instructions Recorded Confirmed Type albuterol sulfate 90 mcg/actuation 1 puffs INH Q6H PRN 01/29/19 03/15/21 History aerosol inhaler (ProAir HFA) multivitamin (Multiple Vitamins) 1 tab PO DAILY 01/29/19 03/15/21 History sertraline 100 mg tablet (Zoloft) 200 mg PO DAILY 03/06/21 03/15/21 History breast pump #1 ea 03/08/21 03/15/21 Rx ferrous sulfate 325 mg (65 mg 325 mg PO Q OTHER DAY 42 Days #21 03/08/21 03/15/21 Rx iron) tablet tab Patient History Medical History Female infertility History of chicken pox History of ovarian cyst Surgical History S/P tooth extraction Family History Father Kidney stones Type B viral hepatitis Mother Type B viral hepatitis Family/Other Tuberculosis maternal great grandmother Grandmother (Maternal) Lung cancer Grandmother (Paternal) Diabetes Denies family history of Ovarian cancer Prostate cancer Breast cancer Colorectal cancer Social History Smoking Status: Never smoker Second Hand Exposure: No; Hx Alcohol Use: No Hx Substance Use: No Preferred Language: Bahamian Communication Ability: Effective Risk Assessment Analyst Required: No Beliefs That Will Affect Care: None marital status: marital status details: Harvey Mackenzie (40) [phone] Current Living Situation: Spouse Current Living Situation Comment: lives with spouse, 2 step children, dogs current occupational status: employed 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 Feels Safe at Home: Yes Assistive Devices: None Review of Systems as per Subjective / HPI Physical Exam Constitutional: WD/WN, vitals as above Respiratory: normal respiratory effort, lungs clear to auscultation Cardiovascular: Rate/Rhythm: regular rate and regular rhythm Gastrointestinal (Abdomen): Inspection/Auscultation: abdomen normal to inspection Percussion/Palpation: abdomen soft; abdomen nontender and no gu arding Musculoskeletal: tr edema nontender calves Neurologic: Patellar dtrs +2-+3 no clonus Psychiatric: A+Ox3, euthymic affect Results & Data ([facility]) Vital Signs (Past 12 Hours) Vital Signs Temp Pulse Resp BP Pulse Ox 03/15/21 18:57 56 L 94 03/15/21 18:56 52 L 97 03/15/21 18:51 56 L 96 03/15/21 18:49 54 L 141/65 H 93 03/15/21 18:46 55 L 96 03/15/21 18:44 57 L 94 03/15/21 18:41 78 97 03/15/21 18:39 81 94 03/15/21 18:36 77 97 03/15/21 18:34 70 168/81 H 03/15/21 18:33 72 93 03/15/21 18:31 58 L 95 03/15/21 18:26 56 L 97 03/15/21 18:24 60 93 03/15/21 18:21 50 L 96 03/15/21 18:19 54 L 177/91 H 03/15/21 18:16 58 L 97 03/15/21 18:04 49 L 167/79 H 03/15/21 18:00 22 03/15/21 17:49 52 L 171/83 H 03/15/21 17:34 98.8 F 49 L 22 190/92 H Coding Level of Care Code 93310 Initial Inpt Care Lvl 3 Diagnoses hypertension O16.5
[2021-03-15] MEDS ORDERED: LIDOCAINE 2% JELLY 5 ML TUBE ONE (19:50)
[2021-03-15] MEDS ORDERED: ACETAMINOPHEN 325 MG TAB PO PRN (20:28)
[2021-03-15 21:08] LABS: Creatinine Urine Random 12.9 mg/dl; Total Protein Urine Random < 4.0 mg/dl (0-11.9)
[2021-03-15] MEDS ORDERED: NIFEdipine EXTENDED REL 30 MG TABCR PO STA (22:34)
--- NOTE | 2021-03-15 23:47 | Communication Note ---
Date of Service: March 15, 2021 Prior to going to covme room reviewed labs with patient and covid +. Tearful about covid dx and bps elevated. Had given one dose of iv hydralazine thus far. Let patient settle down emotionally and bps still elevated but <160/105 so opted to start po bp med. nifedipine xl 30mg dosed and will see how responds. At time of that decision approx 10pm, urine output was excellent and due to moving to [facility] room from L&D, mag level not yet drawn. Pt's juarez was better, not requesting pain meds. Of note, urine protein neg and again other labs normal. Will not plan other labs at this time. Addendum: just got message from nurse as I type this that pt feeling sob, labile pulse ox. has asthma and uses inhaler, will order. normal bp. will consider hospitalist consult
[2021-03-15] MEDS ORDERED: ALBUTEROL HFA 8 GM INHALER INH PRN (23:59)
--- NOTE | 2021-03-16 00:13 | Hospitalist Consultation ---
Date of Consultation March 16, 2021 Assessment & Plan (1) COVID: 41yo with a history of asthma and a recent s/p PROM induction (03/07/21) on PPD#10 who was sent to [facility] from OBGYN clinic due to elevated BP in clinic today in addition to symptoms of preeclampsia this week including vision changes, LE swelling, and on-and-off headaches. The hospitalist service was consulted after patient's covid test on admission today was positive and patient had some desaturations with exertion today. COVID-19, shortness of breath Symptoms began 03/10/21, tested positive on 03/15/21; patient is triple- vaccinated and has no known prior history of covid Unclear if SOB is due to covid alone or multifactorial (e.g. asthma, pulmonary edema from preeclampsia, PE, others) PE unlikely given patient is afebrile and mildly bradycardic at this time; will obtain d-dimer and consider CTA if markedly elevated CXR ordered and reviewed, revealed mild right hemidiaphragm elevation but no findings suggestive of pulmonary edema or PNA Will obtain continuous pulse oximetry; if patient has true episodes of hypoxia, will consider dexamethasone, remdesevir, etc Supplemental oxygen as-needed to maintain O2 sat>90% Lovenox 40mg sq bid ordered Continue albuterol q6h prn Elevated BP, concern for preeclampsia Avoid further doses of labetalol given patient's history of asthma Rest of management per OBGYN Asthma Continue albuterol as above Asthma added to patient's problem list FEN: NPO Code status: full code DVT ppx: lovenox 40mg sq bid Isolation: airborne Dispo: med/surg (2) Asthma: Supervising Physician Co-Signing Physician Notes Patient seen and examined, chart reviewed, case discussed with Dr. Monterroso and I agree with the assessment and plan as above. In brief, patient is a 41yo s/p post day #10 with positive Covid-19 test. Patient with mild dry cough 5 days ago which has since improved. She is being managed for pre- eclampsia under primary OB team with magnesium gtt, Nifedipine and Labetalol. Reported saturations of 90-95 at rest, drops into 80's with sleep. Patient with no complaints Exam is unremarkable. Lungs with diminished breath sounds in bilateral bases otherwise clear Saturation >96% during my encounter with proper waveform Labs and images reviewed Ddimer elevated >58415 CTA with no PE. No airspace opacities or PNA. Small pleural effusions and compressive atelectasis Assessment/plan - 41yo female PPD#10 admitted with post- pre-eclampsia presently on Mg gtt. Covid-19 POSITIVE. Patient is fully vaccinated + booster. Mild symptoms of cough 5 days ago, now improving Borderline saturations - low mostly noted with sleeping. Unclear how much Covid-19 is contributing to borderline saturations. Her CTA shows no airspace involvement or PNA. No PE is present. ?GERARDO in (hormones, weight gain, jaw laxity), ?mild volume overload in setting of recent delivery, and pre-eclampsia (effusions noted on CT) -Monitor saturations -Consider use of O2 while sleeping if sats decrease only with sleep -Consider dose of diuretic -Incentive spirometry -If saturations <94% on room air while awake or drop significantly with ambulation would initiate steroids/dexamethasone History of Present Illness Attending Physician: Sommer Crouch MD, FACOG History of Present Illness 41yo with recent s/p PROM induction (03/07/21, discharged 03/09/21) and a history of asthma who was referred to [facility] by outpatient OBGYN due to elevated BP in clinic today in addition to symptoms of preeclampsia this week including vision changes, LE swelling, and on-and-off headaches. The hospitalist service was consulted after patient's covid test on admission today was positive. Patient has been satting 90-95% at rest, with some desaturations to the 80s noted with exertion and sleep. Patient notes she developed mild SOB and a mild dry cough about five days ago. Patient has a history of asthma - has not needed to use her albuterol inhaler in years, but notes she went to her PCP three days ago to have this refilled. Since refilling her albuterol, she has been using it every 4-6 hours with a mild improvement in symptoms. Patient notes her SOB and cough have been gradually improving over the past few days. Patient has been triple-vaccinated for covid, and does not have a prior history of covid infection. Patient's last negative covid test was on 03/05 when she was admitted in labor. Patient is a never- smoker. In addition to mild SOB and cough, patient also endorses a mild headache at this time. Patient denies other symptoms including fever, chills, vision changes, chest pain, abdominal pain, nausea, vomiting, diarrhea, lightheadedness, dizziness, or other symptoms. Allergies Allergy/AdvReac Type Severity Reaction Status Date / Time Latex, Natural Rubber Allergy Rash Verified 03/16/21 00:13 clindamycin AdvReac Rash Verified 03/16/21 00:13 Echinacea AdvReac Anaphylaxis Verified 03/16/21 00:13 theophylline AdvReac Vomiting Verified 03/16/21 00:13 Home Medications Medication Instructions Recorded Confirmed Type albuterol sulfate 90 mcg/actuation 1 puffs INH Q6H PRN 01/29/19 03/16/21 History aerosol inhaler (ProAir HFA) multivitamin (Multiple Vitamins) 1 tab PO DAILY 01/29/19 03/16/21 History sertraline 100 mg tablet (Zoloft) 200 mg PO DAILY 03/06/21 03/16/21 History breast pump #1 ea 03/08/21 03/15/21 Rx ferrous sulfate 325 mg (65 mg 325 mg PO Q OTHER DAY 42 Days #21 03/08/21 03/16/21 Rx iron) tablet tab Patient History Medical History (Updated 03/16/21 @ 00:53 by Talat Monterroso MD) Anxiety Asthma Closed patellar dislocation Female infertility History of chicken pox History of ovarian cyst Surgical History S/P tooth extraction Family History Father Kidney stones Type B viral hepatitis Mother Type B viral hepatitis Family/Other Tuberculosis maternal great grandmother Grandmother (Maternal) Lung cancer Grandmother (Paternal) Diabetes Denies family history of Ovarian cancer Prostate cancer Breast cancer Colorectal cancer Social History Smoking Status: Never smoker Second Hand Exposure: No; Hx Alcohol Use: Yes Hx Substance Use: No Preferred Language: Bengali Communication Ability: Effective Application Dba Required: No Beliefs That Will Affect Care: None marital status: marital status details: Harvey Mackenzie (40) [phone] Current Living Situation: Spouse and Family Current Living Situation Comment: lives with spouse, 2 step children, dogs current occupational status: employed 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 Other Information That Helps Us Care for You: No Feels Safe at Home: Yes Safety Concerns: Feels Safe At This Time Assistive Devices: Glasses Review of Systems Review of Systems: See HPI Physical Exam Physical Exam: Constitutional: well-appearing, no acute distress, laying comfortably in bed HEENT: MMM CV: regular rhythm, no murmur appreciated, extremities well-perfused, trace LE edema Resp: mild rhonchi of lower lobes noted in posterior chamberlain bilaterally, lungs clear in all other chamberlain, no crackles or wheezes noted, WOB not increased GI: soft, nondistended, nontender, BS normoactive MSK: no gross deformities appreciated Skin: warm, dry, no rash appreciated Neuro: alert, oriented, no focal neurologic deficit appreciated Results & Data Results & Data ([facility]) Vital Signs (Past 12 Hours) Vital Signs Temp Pulse Resp BP Pulse Ox 03/15/21 23:09 55 L 16 130/77 95 03/15/21 22:30 66 16 151/85 H 96 03/15/21 21:30 36.9 C 66 18 151/84 H 95 03/15/21 21:16 66 97 03/15/21 21:11 57 L 96 03/15/21 21:06 65 96 03/15/21 21:04 58 L 152/74 H 03/15/21 21:01 61 96 03/15/21 20:56 69 96 03/15/21 20:53 62 94 03/15/21 20:51 59 L 96 03/15/21 20:49 60 148/70 H 03/15/21 20:46 76 96 03/15/21 20:41 72 93 03/15/21 20:39 75 94 03/15/21 20:36 68 96 03/15/21 20:34 69 157/75 H 03/15/21 20:31 71 96 03/15/21 20:26 67 94 03/15/21 20:25 59 L 94 03/15/21 20:21 60 96 03/15/21 20:19 59 L 162/77 H 03/15/21 20:16 58 L 97 03/15/21 20:11 63 97 03/15/21 20:06 58 L 98 03/15/21 20:04 55 L 162/74 H 03/15/21 20:01 59 L 97 03/15/21 19:59 83 94 03/15/21 19:56 58 L 97 03/15/21 19:51 65 97 03/15/21 19:49 81 167/79 H 03/15/21 19:47 97 H 93 03/15/21 19:46 85 97 03/15/21 19:41 100 H 96 03/15/21 19:39 91 H 92 03/15/21 19:36 64 100 03/15/21 19:34 58 L 136/66 03/15/21 19:31 67 96 03/15/21 19:26 65 98 03/15/21 19:21 92 H 96 03/15/21 19:20 76 93 03/15/21 19:16 64 97 03/15/21 19:14 56 L 94 03/15/21 19:11 53 L 96 03/15/21 19:07 57 L 94 03/15/21 19:06 57 L 96 03/15/21 19:04 51 L 144/67 H 03/15/21 19:01 57 L 96 03/15/21 18:57 56 L 94 03/15/21 18:56 52 L 97 03/15/21 18:51 56 L 96 03/15/21 18:49 54 L 141/65 H 93 03/15/21 18:46 55 L 96 03/15/21 18:44 57 L 94 03/15/21 18:41 78 97 03/15/21 18:39 81 94 03/15/21 18:36 77 97 03/15/21 18:34 70 168/81 H 03/15/21 18:33 72 93 03/15/21 18:31 58 L 95 03/15/21 18:26 56 L 97 03/15/21 18:24 60 93 03/15/21 18:21 50 L 96 03/15/21 18:19 54 L 177/91 H 03/15/21 18:16 58 L 97 03/15/21 18:04 49 L 167/79 H 03/15/21 18:00 22 03/15/21 17:49 52 L 171/83 H 03/15/21 17:34 37.1 C 49 L 22 190/92 H Laboratory Results Laboratory Results WBC 9.77 K/uL (4.8-10.8) 03/15/21 18: RBC 3.75 M/uL (4.2-5.4) L 03/15/21 18:23 Hgb 9.4 g/dL (12.0-16.0) L 03/15/21 18:23 Hct 31.5 % (37-47) L 03/15/21 18: MCV 84.0 fL (80-100) 03/15/21 18: MCH 25.1 pg (25-34) 03/15/21 18: MCHC 29.8 g/dL (32-36) L 03/15/21 18: RDW Std Deviation 49.0 fL (36.4-46.3) H 03/15/21 18: RDW Coeff of Vamsi 16.3 % (11.5-14.5) H 03/15/21 18: Plt Count 197 K/uL (130-400) 03/15/21 18: MPV 9.8 fL (7.4-10.4) 03/15/21 18:23 Neutrophils % (Manual) 73.7 % 03/15/21 18: Lymphocytes % (Manual) 17.5 % 03/15/21 18: Monocytes % (Manual) 4.4 % 03/15/21 18: Eosinophils % (Manual) 2.6 % 03/15/21 18: Basophils % (Manual) 0.9 % 03/15/21 18: Myelocytes % (Man) 0.9 % 03/15/21 18: Neutrophils # (Manual) 7.20 K/uL (1.4-6.5) H 03/15/21 18:23 Total Absolute Neuts 7.20 K/uL (1.4-6.5) H 03/15/21 18: Lymphocytes # (Manual) 1.71 K/uL (1.2-3.4) 03/15/21 18: Total Abs Lymphocytes 1.71 K/uL (1.2-3.4) 03/15/21 18:23 Monocytes # (Manual) 0.43 K/uL (0.11-0.59) 03/15/21 18:23 Eosinophils # (Manual) 0.25 K/uL (0-0.5) 03/15/21 18:23 Basophils # (Manual) 0.09 K/uL (0-0.2) 03/15/21 18:23 Myelocytes # (Manual) 0.09 K/uL (0-0) H 03/15/21 18:23 Polychromasia 1+ 03/15/21 18:23 PT 11.2 Seconds (9.0-12.0) 03/15/21 18:23 INR 1.1 (0.9-1.1) 03/15/21 18:23 APTT 27.2 Seconds (21.0-31.0) 03/15/21 18: PTT Ratio 1.0 03/15/21 18:23 D-Dimer > 36787 ug/L FEU (0-500) H* 03/16/21 01:16 Sodium 140 mmol/L (136-145) 03/15/21 18:23 Potassium 4.2 mmol/L (3.5-5.1) 03/15/21 18:23 Chloride 109 mmol/L (98-107) H 03/15/21 18:23 Carbon Dioxide 24 mmol/L (21-32) 03/15/21 18:23 Anion Gap 7 (3-11) 03/15/21 18:23 BUN 16 mg/dl (6-23) 03/15/21 18:23 Creatinine 0.72 mg/dl (0.6-1.2) 03/15/21 18:23 Est Cr Clr Drug Dosing Not Reportable 03/15/21 18:23 Est GFR ( Amer) 121.4 ml/min 03/15/21 18:23 Est GFR (Non-Af Amer) 104.8 ml/min 03/15/21 18:23 BUN/Creatinine Ratio 22.2 (10-20) H 03/15/21 18:23 Glucose 77 mg/dl (70-99(Fasting)) 03/15/21 18:23 Calcium 8.0 mg/dl (8.5-10.1) L 03/15/21 18:23 Magnesium (Sulf Ther) 4.9 mg/dL (4.0-8.0) 03/15/21 22:53 Total Bilirubin 0.3 mg/dl (0.2-1.0) 03/15/21 18:23 AST 26 U/L (13-39) 03/15/21 18:23 ALT 30 U/L (7-52) 03/15/21 18:23 Alkaline Phosphatase 137 U/L (34-104) H 03/15/21 18:23 Total Protein 5.6 gm/dl (6.0-8.3) L 03/15/21 18:23 Albumin 3.2 gm/dl (3.4-5.0) L 03/15/21 18:23 Globulin 2.4 gm/dl (2.5-4.0) L 03/15/21 18:23 Albumin/Globulin Ratio 1.3 (0.9-2) 03/15/21 18:23 Ur Random Creatinine 12.9 mg/dl 03/15/21 20:00 U Random Total Protein < 4.0 mg/dl (0-11.9) 03/15/21 20:00 Protein/Creatinin Ratio TNP 03/15/21 20:00 SARS-CoV-2, RNA, NAAT POSITIVE (NEGATIVE) A* 03/15/21 Unknown Resident Activity Tracking Resident Involvement: Resident Care Provided Care Provided: Adult Hospital Medicine
[2021-03-16] MEDS: IBUPROFEN 600 MG TAB PO PRN ×3 (00:43→19:52)
[2021-03-16] MEDS: ENOXAPARIN INJ 40 MG/0.4 ML SYR SQ SCH ×2 (01:54→12:37)
[2021-03-16 02:11] LABS: D Dimer > 35200 ug/L FEU (0-500)
[2021-03-16] MEDS ORDERED: OPTIRAY 320 125ml IV ONE (02:49)
--- NOTE | 2021-03-16 07:09 | Billing Data ---
Date of Service March 16, 2021 Coding Level of Care Code 90900 Inpt Consult Level 3
--- NOTE | 2021-03-16 07:23 | CT Scan Report ---
CT angio chest PE protocol CT DOSE: 317.04 mGy.cm HISTORY: 41 years-old Female with concern for PE. Acute shortness of breath with recent TECHNIQUE: Multiple CTA images of the chest were obtained after the intravenous administration of 110 ml Optiray. Coronal and sagittal MIPS were obtained from the axial data set and were submitted for review. All measurements were obtained according to NASCET criteria. A dose lowering technique was u tilized adhering to the principles of ALARA. COMPARISON: Chest radiograph of same day FINDINGS: CTA: There is adequate opacification of the pulmonary arteries to the level of the subsegmental branches w ithout convincing evidence of acute pulmonary embolism. thoracic aorta Heart size is normal. CT CHEST: No no thyroid nodule. No definite adenopathy. Small right greater left pleural effusions with mild de pendent bibasilar consolidation. No pneumothorax or overt pulmonary edema. Subpleural 4 mm solid nodu le of the right upper lobe, image 232 is likely benign. The central airways are patent. No acute process of the imaged upper abdomen. Unremarkable soft tissues. No acute fracture. IMPRESSION: 1. No pulmonary emboli. 2. Small right greater than left left layering pleural effusions with mild dependent bibasilar consol idation suggestive of compressive atelectasis. ACT 112: Negative or not required by law. The above report was generated using voice recognition software. It may contain grammatical, syntax o r spelling errors. Electronically signed by: Jose Alejandra M.D. 03/16/2021 7:21 AM
--- NOTE | 2021-03-16 07:32 | XRay Report ---
XR chest 1V portable CLINICAL HISTORY: covid, hypoxia COMPARISON STUDY: Chest radiograph July 09, 2015. FINDINGS: There is no pneumothorax. Small right pleural effusion is noted with mild right basilar opa city. Cardiac size is normal. There is no evidence for pulmonary edema. IMPRESSION: 1. Small right pleural effusion with associated atelectasis. 2. No pneumothorax. ACT 112: Negative or not required by law. Electronically signed by: Dani Nicole M.D. 03/16/2021 7:31 AM
--- NOTE | 2021-03-16 08:28 | Obstetrical Progress Note ---
Date of Service March 16, 2021 Assessment & Plan (1) hypertension: (2) Asthma: Plan: Bps are labile, I started po nifedipine xl last pm. Will see trend and may change dosing. urine output excellent, no concern for mag toxicity. labs on admission looked good as far as gest htn and therefore i did not repeat. mag level last pm normal as well. will d/w oncyun md and further labs for our diagnoses. she says feels better after her inhaler and does not seem to have abnl pulse ox when awake. can pursue possible sleep apnea as outpt. appreciate hospitalist input, if bps stable for us by 24hr pp magnesium, we will likely d/c home, barring any objections from their service. pt aware that plan is in flux given unknowns this am, ie. how her bps will do, what other sx she will develop. allow reg diet. Admission and Anticipated Discharge Date Admission Date: March 15, 2021 Subjective Pt doing well this am. Reports no sob or cp. No juarez or visual change. No persistent ruq pain. Was seen by hospitalist service by my request overnight. Ended up getting CXR and chest CT, reports reviewed with patient. I had ordered her albuterol inhaler as well and she notes her sob improved afterwards. Has known h/o asthma. Review of Systems Constitutional: as per Subjective / HPI Physical Exam Constitutional: WD/WN, vitals as above Respiratory: normal respiratory effort, lungs clear to auscultation Cardiovascular: Rate/Rhythm: regular rate and regular rhythm Gastrointestinal (Abdomen): soft nt Musculoskeletal: tr edema nontender calves Neurologic: Patellar dtrs +2-+3 no clonus Psychiatric: A+Ox3, euthymic affect Results & Data ([facility]) Vital Signs (Past 12 Hours) Vital Signs Temp Pulse Pulse Resp BP Pulse Ox 03/16/21 06:30 93 03/16/21 06:24 18 03/16/21 06:23 67 18 129/76 96 03/16/21 05:16 70 16 134/84 98 03/16/21 05:15 16 03/16/21 04:15 97.5 F L 61 16 149/81 H 97 03/16/21 02:58 18 03/16/21 02:55 61 18 152/88 H 97 03/16/21 02:01 61 16 150/83 H 92 03/16/21 02:00 16 03/16/21 01:49 61 20 96 03/16/21 01:30 20 03/16/21 01:27 97.9 F 76 18 150/84 H 96 03/16/21 00:30 18 03/16/21 00:10 54 L 18 155/84 H 96 03/15/21 23:30 16 03/15/21 23:09 55 L 16 130/77 95 03/15/21 22:30 66 16 151/85 H 96 03/15/21 21:30 98.4 F 66 16 151/84 H 95 03/15/21 21:16 66 97 03/15/21 21:11 57 L 96 03/15/21 21:06 65 96 03/15/21 21:04 58 L 152/74 H 03/15/21 21:01 61 96 03/15/21 20:56 69 96 03/15/21 20:53 62 94 03/15/21 20:51 59 L 96 03/15/21 20:49 60 148/70 H 03/15/21 20:46 76 96 03/15/21 20:41 72 93 03/15/21 20:39 75 94 03/15/21 20:36 68 96 03/15/21 20:34 69 157/75 H 03/15/21 20:31 71 96 03/15/21 20:26 67 94 03/15/21 20:25 59 L 94 PG Care Time/CCT Total # of Minutes Spent Total Time Spent with Patient: Total time spent is greater than 50% in coordination of care (as documented) at patient's floor/unit and/or counseling patient: Coding Level of Care Code 11431 Subseq Obs Care Lvl 2 Diagnoses hypertension O16.5 Asthma J45.909
[2021-03-16] MEDS: MAGNESIUM SULFATE / WTR 40 GM/1,000 ML BAG IV SCH (09:35)
--- NOTE | 2021-03-16 15:17 | Hospitalist Progress Note ---
Date of Service March 16, 2021 Assessment & Plan (1) COVID: Plan: 41yo with a history of asthma and a recent s/p PROM induction (03/07/21) on PPD#10 who was sent to [facility] from OBGYN clinic due to elevated BP in clinic today in addition to symptoms of preeclampsia this week including vision changes, LE swelling, and on-and-off headaches. The hospitalist service was consulted after patient's covid test on admission today was positive and patient had some desaturations with exertion today. Symptoms began 03/10/21, tested positive on 03/15/21; patient is triple- vaccinated and has no known prior history of covid Unclear if SOB is due to covid alone or multifactorial (e.g. asthma, pulmonary edema from preeclampsia, others) DDimer markedly elevated, CTA obtained which was negative for PE. CXR ordered and reviewed, revealed mild right hemidiaphragm elevation but no findings suggestive of pulmonary edema or PNA Will obtain continuous pulse oximetry; at this point, no hypoxia to necessitate Decadron or other medications to treat COVID Supplemental oxygen as-needed to maintain O2 sat>90%, has not required any O2 at this time Lovenox 40mg sq bid ordered, because of her high risk for PE given recent and now COVID would recommend daily Lovenox injections for ppx Unfortunately, a DOAC is not an option as they are not recommended for mothers (2) Asthma: Plan: Continue albuterol as above Asthma added to patient's problem list (3) Elevated BP without diagnosis of hypertension: Plan: Avoid further doses of labetalol given patient's history of asthma Rest of management per OBGYN Plan: At this point, I have no further recommendations for this patient other than as outlined above. If she should be discharged this evening, I would recommend daily Lovenox 40mg SC x 30 days. Admission and Anticipated Discharge Date Admission Date: March 15, 2021 Supervising Physician Co-Signing Physician Notes Chart reviewed, case discussed with Ashley Mckeon PA-C and I agree with the assessment and plan as above. Pt with afternoon desat, +decadron 6mg daily and overnight pulseox ordered. Subjective Patient seen on rounds this morning, she is doing well and has no complaints. There was question if her oxygen was lowering while she was sleeping, but no recorded drops this morning. Pt denies cp, dyspnea, cough, fever/chills. She denies n/v/d. She is currently on Lovenox injections and tolerating them. She is 10 days post . Hospitalized 03/15 d/t PP pre-eclampsia with incidental covid+ test which prompted medical consult. Pt is . Review of Systems Review of Systems: CONSTITUTIONAL: Denies weight loss/gain, fever and chills, fatigue, malaise, generalized weakness. HEENT: Denies changes in vision and hearing. RESPIRATORY: Denies SOB, cough, wheezing. CV: Denies palpitations, CP, lower extremity edema, orthopnea, PND. GI: Denies abdominal pain, nausea, vomiting and diarrhea. : Denies dysuria and urinary frequency, urgency, hesitancy. MUSCULOSKELETAL: Denies myalgia and joint pain. SKIN: Denies rash and pruritus. NEUROLOGICAL: Denies headache, syncope, focal weakness, numbness, tingling. PSYCHIATRIC: Denies recent changes in mood. Denies anxiety and depression. Physical Exam Physical Exam: GENERAL: 41 yo WD/WN WF. NAD. LUNGS: Clear to auscultation bilaterally. No W/R/R. CARDIOVASCULAR: Regular rate and rhythm. No M/G/R. No JVD. ABDOMEN: Soft, non-tender and non-distended. BS normal x 4 quad. EXTREMITIES: No edema. Non-tender. Peripheral pulses +2/4. NEUROLOGIC: A&O x3. PSYCHIATRIC: Cooperative. Appropriate mood and affect. SKIN: Warm, dry, intact. No rashes or lesions. Results & Data Results & Data ([facility]) Vital Signs (Past 12 Hours) Vital Signs Temp Pulse Pulse Resp BP BP Pulse Ox 03/16/21 14:30 64 18 126/81 97 03/16/21 13:30 91 H 20 135/81 98 03/16/21 12:33 71 16 113/69 96 03/16/21 11:30 36.8 C 71 16 123/75 93 03/16/21 11:10 94 03/16/21 11:05 87 L 03/16/21 10:35 82 20 127/78 96 03/16/21 09:36 20 03/16/21 09:30 81 20 113/69 97 03/16/21 08:30 60 20 126/76 98 03/16/21 07:30 20 03/16/21 07:25 36.7 C 61 20 126/74 94 03/16/21 06:30 93 03/16/21 06:24 18 03/16/21 06:23 67 18 129/76 96 03/16/21 05:16 70 16 134/84 98 03/16/21 05:15 16 03/16/21 04:15 36.4 C L 61 16 149/81 H 97 Laboratory Results no labs this morning Diagnostic Findings Chest X-Ray 03/16/21 00:52 XR chest 1V portable CLINICAL HISTORY: covid, hypoxia COMPARISON STUDY: Chest radiograph July 09, 2015. FINDINGS: There is no pneumothorax. Small right pleural effusion is noted with mild right basilar opacity. Cardiac size is normal. There is no evidence for pulmonary edema. IMPRESSION: 1. Small right pleural effusion with associated atelectasis. 2. No pneumothorax. ACT 112: Negative or not required by law. Electronically signed by: Dani Nicole M.D. 03/16/2021 7:31 AM Chest CTA 03/16/21 02:18 CT angio chest PE protocol CT DOSE: 317.04 mGy.cm HISTORY: 41 years-old Female with concern for PE. Acute shortness of breath with recent TECHNIQUE: Multiple CTA images of the chest were obtained after the intravenous administration of 110 ml Optiray. Coronal and sagittal MIPS were obtained from the axial data set and were submitted for review. All measurements were obtained according to NASCET criteria. A dose lowering technique was utilized adhering to the principles of ALARA. COMPARISON: Chest radiograph of same day FINDINGS: CTA: There is adequate opacification of the pulmonary arteries to the level of the subsegmental branches without convincing evidence of acute pulmonary embolism. thoracic aorta Heart size is normal. CT CHEST: No no thyroid nodule. No definite adenopathy. Small right greater left pleural effusions with mild dependent bibasilar consolidation. No pneumothorax or overt pulmonary edema. Subpleural 4 mm solid nodule of the right upper lobe, image 232 is likely benign. The central airways are patent. No acute process of the imaged upper abdomen. Unremarkable soft tissues. No acute fracture. IMPRESSION: 1. No pulmonary emboli. 2. Small right greater than left left layering pleural effusions with mild dependent bibasilar consolidation suggestive of compressive atelectasis. ACT 112: Negative or not required by law. The above report was generated using voice recognition software. It may contain grammatical, syntax or spelling errors. Electronically signed by: Jose Alejandra M.D. 03/16/2021 7:21 AM PG Care Time/CCT Total # of Minutes Spent Total Time Spent with Patient: Total time spent is greater than 50% in coordination of care (as documented) at patient's floor/unit and/or counseling patient: Coding Level of Care Code None Diagnoses COVID U07.1 Asthma J45.909 Elevated BP without diagnosis of hypertension R03.0
--- NOTE | 2021-03-16 17:07 | Communication Note ---
Date of Service: March 16, 2021 Patient admitted with hypertension. Has been well controlled on Procardia 30XL. Plan signed out to me was that patient be discharged to home after 24 hours of magnesium, with Rx for Procardia. Incidental finding of COVID+ on admission, for which she was also seen by hospitalist team. D-Dimer elevated but no PE found; given and also COVID which are both pro- coagulation states, she was prescribed daily prophylactic dose lovenox. Patient did have one episode of desaturation during sleep, but has otherwise been holding pulse ox >95% while on room air. Thus the hospitalist team feels D/C home is appropriate without oxygen and without further inpatient care or other COVID treatments. Given she will be eligible for d/c after completing 24hr of magnesium from an OB standpoint, and she desires to be home this evening if possible, will place orders now so she can be prepped for home tonight with all her Rx's sent for pickup now.
[2021-03-16] MEDS ORDERED: dexAMETHasone 6 MG in SYRINGE 0 ML IV ONE (17:45)
[2021-03-16] MEDS ORDERED: NIFEdipine EXTENDED REL 30 MG TABCR PO SCH (21:00)
[2021-03-17] MEDS ORDERED: NIFEdipine EXTENDED REL 30 MG TABCR PO SCH ×2
[2021-03-17] MEDS: ENOXAPARIN INJ 40 MG/0.4 ML SYR SQ SCH ×2 (01:21→13:00)
[2021-03-17] MEDS: IBUPROFEN 600 MG TAB PO PRN (01:21)
[2021-03-17 08:26] LABS: Basophils # (auto) 0.04 K/uL (0-0.2); Basophils % (auto) 0.3 %; Eosinophils # (auto) 0.12 K/uL (0-0.5); Eosinophils % (auto) 0.9 %; Hematocrit (blood only) 35.6 % (37-47); Hemoglobin 10.9 g/dL (12.0-16.0); Immature Granulocytes % (auto) 0.8 %; Lymphocytes % (auto) 20.2 %; Mean Corpuscular Hemoglobin 25.2 pg (25-34); Mean Corpuscular Hgb Conc 30.6 g/dL (32-36); Mean Corpuscular Volume 82.2 fL (80-100); Mean Platelet Volume 9.7 fL (7.4-10.4); Monocytes # (auto) 0.53 K/uL (0.11-0.59); Monocytes % (auto) 4.1 %; Neutrophils # (auto) 9.51 K/uL (1.4-6.5); Neutrophils % (auto) 73.7 %; Platelet Count 289 K/uL (130-400); RDW Coefficient of Variation 16.1 % (11.5-14.5); Red Blood Count 4.33 M/uL (4.2-5.4)
[2021-03-17] MEDS ORDERED: dexAMETHasone 6 MG in SYRINGE 0 ML IV SCH (09:00)
[2021-03-17] MEDS ORDERED: SERTRALINE HCL 100 MG TABLET PO SCH (09:00)
[2021-03-17] MEDS ORDERED: POLYETHYLENE (MIRALAX) 17 GM PACK PO SCH (09:00)
--- NOTE | 2021-03-17 18:38 | Discharge Summary ---
Date of Service March 17, 2021 Admission HPI Per Admitting Provider 41yo now 9days who presented to office with above cc. Patient had PROM induction with on 03/07/20 at term. She was sent home on 03/09/20. Of note no hypertensive disorders of or immediate pp. Then on thursday at home saw some bright flashing lights, some swelling and called on thursday and was seen in office. She had used a home bp cuff on thursday and thought her bp was elevated. At that point BP normal and no other symptoms when seen in office and provider recommended recheck of bp on thursday in office. Presented for that visit today. Had on and off HAs "all day." She denies n/v/ruq pain. Has had some gum bleeding today as well. On evaluation in office bps elevated 160/94 and d/w office md and decided likely pp preeclampsi and brought to L&D as direct admission for observation. On arrival reports same sx. Has been nursing and that is going well. No requesting anything for juarez pain. Principal Diagnosis 1. preeclampsia 2. Covid19 3. Nocturnal hypoxemia Discharge Exam General: Resting comfortably in her hospital bed. She does not appear ill or toxic NAD. HEENT: Head is AT/NC buccal mucosa is moist and pink Neck: No JVD. Negative hepatojugular reflex Cardiac: RRR without M/G/R Lungs: CTA without W/R/R Abdomen: Normoactive X4. Soft and nontender in all quadrants. Extremities: No peripheral clubbing cyanosis or edema Neuro: A&O X4 cranial nerves II through XII are grossly intact no focal neuro deficits Skin: No obvious skin lesions or rashes Psych: Appropriate affect pleasant and cooperative Discharge Data Allergies Allergy/AdvReac Type Severity Reaction Status Date / Time Latex, Natural Rubber Allergy Rash Verified 03/16/21 00:13 clindamycin AdvReac Rash Verified 03/16/21 00:13 Echinacea AdvReac Anaphylaxis Verified 03/16/21 00:13 theophylline AdvReac Vomiting Verified 03/16/21 00:13 Consultations 03/15/21 23:48 Consult Hospitalist Routine Ordered Studies 03/16/21 02:18 CT angio chest PE protocol Urgent Hospital Course (1) COVID: 41yo with a history of asthma and a recent s/p PROM induction (03/07/21) on PPD#10 who was sent to [facility] from OBGYN clinic due to elevated BP in clinic in addition to symptoms of preeclampsia this week including vision changes, LE swelling, and on-and-off headaches. The hospitalist service was consulted after patient's covid test on admission today was positive. Symptoms began 03/10/21 (mild fatigue and slight shortness of breath when supine and with exertion)-- tested positive on 03/15/21; patient is triple- vaccinated and has no known prior history of covid Unclear if SOB is due to covid alone or multifactorial (e.g. asthma, pulmonary edema from preeclampsia, others) DDimer markedly elevated, CTA obtained which was negative for PE. CXR ordered and reviewed, revealed mild right hemidiaphragm elevation but no findings suggestive of pulmonary edema or PNA Patient not requiring supplemental oxygen at rest. Two-step pulse oximetry performed showing no need for supplemental oxygen with exertion but per nursing staff, patient was having brief episodes of desaturation when sleeping overnight pulse oximetry performed. Unfortunately, results of test not able to carry over into the computer but per respiratory therapy, patient did desaturate to 86% for greater than 5 minutes. This was intermittent Patient initially treated with Decadron for total of 2 doses but since is not requiring supplemental oxygen with rest or exertion. Not convinced her nocturnal hypoxemia is related to Covid. I do not believe the benefit of Decadron outweighs the risk of drying up her breastmilk Lovenox 40mg sq bid ordered, because of her high risk for PE given recent and now COVID would recommend daily Lovenox injections for ppx (this is safe for lactating women). -Lengthy discussion with patient regarding increased vaginal bleeding with Lovenox and S/S to watch for for possible underlying anemia. Current hemoglobin stable at 10.9 Unfortunately, a DOAC is not an option as they are not recommended for mothers At this point in time, patient has remained medically and hemodynamically stable. She is anxious and tearful as she "needs to go home to her baby". I agree that there is no medical reason to keep her in the hospital at this point Discharge with nocturnal oxygen. She will be set up to have a pulse ox overnight at home. I suspect she may have a component of sleep apnea (which may be temporary) given to her recent and state. Of course her body habitus has changed, she has additional fluid on board given this postpa rtum preeclampsia, and her breast milk recently came in which only further adds to the weight on her chest Lengthy discussion with patient regarding the importance of breast-feeding especially during this time. She is able to pass on her natural immunity/antibodies to her infant child. It is unrealistic to think that she can completely isolate/quarantine from her baby but she should try to avoid contact as much as possible. Can wear a mask when able. To practice proper hand hygiene (2) Asthma: Continue albuterol as above Asthma added to patient's problem list (3) Elevated BP without diagnosis of hypertension: Patient with diagnosis of preeclampsia Treated with IV labetalol, hydralazine, IV magnesium and subsequently started on oral Procardia Blood pressure currently 132/80 Should follow-up with PCP and OB in the clinic Total Time Total Time Spent Total Time Spent (In Minutes): 60 minutes including time spent with patient, discussion with attending provider, preparation of documentation and coordination of care Discharge Plan Discharge Items Patient Disposition: Home - Self-Care Reason For Visit: PP PREECLAMPSIA Discharge Diagnosis: preeclampsia Activity: Resume your previous activity Non-emergency contact: [employer] Call non-emergency contact if: your symptoms worsen and your rectal temperature is above 100.4 Follow-up/Referrals: Clint Wang MD [Primary Care Provider] - Diet: Regular Addtl Attending Provider Instructions: Follow your routine instructions as at prior discharge. Continue to notify us if any issues develop with headache, shortness of breath, vision changes, right upper quadrant pain, chest pain, swelling, or other concerns. Addtl [employer] Provider Instructions: * Recommend daily Lovenox injections to prevent blood clots due to post- status with concurrent COVID-19 infection (x 6 weeks) * You can also add over the counter Zinc and Vitamin C to your daily regimen as these are immune-boosting supplements * note that you are expected to have vaginal bleeding given your recent vaginal delivery (as discussed, expect increased bleeding with and just after /pumping) * the lovenox on board will increase you vaginal bleeding. Watch for symptoms consistent with anemia (excessive fatigue-- which you just had a baby so this is to be expected, shortness of breath, palpitations/or heart racing, dizziness/lightheadedness). If you develop these symptoms, notify PCP or OB, OR COME BACK TO THE HOSPITAL * As discussed, can use triple antibiotic ointment (that is NOT petroleum based) along with nasal saline to help with the nasal dryness (as oxygen will only make this work) * you are to wear supplemental Oxygen when sleeping (2L) with recommendations to have a repeat overnight pulse ox +/- sleep study as an outpatient-- this is at the discretion fo your PCP * can keep an eye on your pulse ox at home with goal being >/=88% * if you are noticing that you are requiring supplemental O2 during the day, would notify your PCP. I have chosen to NOT continue the steroids (as you are not requiring supplemental O2 at rest and when awake and I am not convinced that the low oxygen levels when you sleep is necessarily related to covid and not because of habitus () and the weight of your breasts given the influx of milk production. IF you are requiring oxygen because of covid, you may benefit from continued steroids (however, for now we are avoiding them as they make dry up your breast-milk) * to help alleviate your nipple soreness, I have ordered "Triple Nipple Cream" which you can use AFTER every feeding * although nearly impossible to isolate from your , may consider wearing a mask and limit exposure. I STRONGLY ENCOURAGE THAT YOU CONTINUE as you are passing antibodies to your which will help with her immunity * Follow up with your PCP: 7-10 days * follow up with OB Pending Studies at Discharge: No Stand-Alone Forms: My [facility], Smoking Cessation Medications and DC Order Prescriptions: New enoxaparin [Lovenox] 40 mg/0.4 mL syringe 40 mg subcut DAILY 30 Days Qty: 12 RF: 0 nifedipine [Procardia XL] 30 mg Tablet Extended Release 24hr 30 mg PO PM Qty: 30 RF: 0 triamcinolone acetonide 0.1 % cream 1 applic topical DIRECTED Qty: 15 RF: 0 mupirocin 2 % ointment 1 applic topical DIRECTED Qty: 15 RF: 0 clotrimazole 1 % cream 1 applic topical DIRECTED Qty: 15 RF: 0 Continued (DME) breast pump Device See Rx Instructions .MEDSUPPLY Qty: 1 RF: 0 albuterol sulfate [ProAir HFA] 90 mcg/actuation HFA aerosol inhaler 1 puffs INH Q6H PRN (Reason: Dyspnea) RF: 0 multivitamin [Multiple Vitamins] tablet 1 tab PO DAILY RF: 0 sertraline [Zoloft] 100 mg Tablet 200 mg PO DAILY RF: 0 ferrous sulfate 325 mg (65 mg iron) tablet 325 mg PO Q OTHER DAY 42 Days Qty: 21 RF: 0 Discharge Orders: Discharge Order (Routine); Ordered 03/17/21 Ordered By: Jeannette Monroe/Other Patient Handouts: Enoxaparin Prefilled Syringe 40 mg/0.4 mL, COVID-19 Home Care Admission Data Admit Date/Time: 03/15/21 18:07 Attending Provider: Norris Simposn Admit Provider: Sommer Crouch Primary Care Provider: Clint Wang Other Providers: Cynthia Gallegos Other Interventions: Discharge Summary Assessment (RN) Last Done: 03/17/21 13:47 Supervising Physician Co-Signing Physician Notes Patient seen and examined, chart reviewed, case discussed with Janice Soto PA-C and I agree with the assessment and plan as above General: A&Ox3. NAD. Cooperative. HEENT: Atraumatic, normocephalic. Pulm: CTAB A&P. -wheezes, -rales, -rhonchi. Symmetrical chest rise. No increase work of breathing. No respiratory distress. Cardiac: RRR, -mrg. Radial pulses intact and symmetrical. Abdominal: Nontender, nondistended, soft. BS present. Ext: Warm, Dry All labs and images reviewed 41yo F post- with COVID. nighttime desats ?apnea, no daytime requirements and asymptomatic otherwise from COVID standpoint. Very high D-Dimer, even for . Given increased thrombosis risk both COVID+, post-, and elevated DD would treat with ppx lovenox for 6 weeks. Discussed with OB. Converted to 40mg daily from BID, discussed risks/benefits of daily vs BID dosing with patient and on shared decisionmaking will pursue 6 weeks of daily PPx dosing. Return precautions including heavy bleeding, lightheadedness, dizziness, leg swelling, and worsening breathing discussed. Agree with HTN management as noted, pt will followup with OB for Post- HTN. Coding Level of Care Code 13964 OBS Care - Discharge Diagnoses COVID U07.1 Asthma J45.909 Elevated BP without diagnosis of hypertension R03.0
== END 2021-03-17 16:04 | disposition home or self-care (01) ==
LOC: 4S1 17:25 → OPB 17:25 → 4S1 17:27 → 3N 22:02
DX: J45.909 Unspecified asthma, uncomplicated; O16.5 Unspecified maternal hypertension, complicating the puerperium; Z79.51 Long term (current) use of inhaled steroids; Z91.040 Latex allergy status; Z88.8 Allergy status to other drugs, medicaments and biological substances; R03.0 Elevated blood-pressure reading, without diagnosis of hypertension